=== PATIENT | male | born 1975 | race Caucasian/White ===

== ENCOUNTER 2024-10-04 12:53 | Emergency (ER) | payer BC, SELFPAY ==
--- NOTE | 2024-10-04 13:33 | RAD REPORT ---
Exam:Hand Right 3 View HISTORY: Right hand pain FINDINGS: Laceration soft tissue adjacent to the fifth metacarpal. No acute fracture or dislocation Old fractures third and fifth digits. Metallic fragments third digit.
[2024-10-04] MEDS ORDERED: TDAP (DIPHTH,PERTUSS(ACELL),TET VAC) 0.5 ML VIAL IMVAC ONE (13:59)
[2024-10-04] MEDS ORDERED: LIDOCAINE 1% MPF 5 ML VIAL ONE (13:59)
[2024-10-04] MEDS ORDERED: ONDANSETRON 4 MG (ODT) TAB ONE (14:12)
--- NOTE | 2024-10-04 14:20 | EDPHYS ---
Physician Documentation [facility] Name: Herman Vazquez Age: 49 yrs Sex: Male : 1975 Arrival Date: 10/04/2024 Time: 12:53 Bed 10 Private MD: ED Physician Luis Douglas HPI: 10/04 13:17 This 49 yrs old Male presents to ER via Ambulatory with complaints of Laceration To kb Hand. 13:17 Pt is a 49 year old male who presents for a laceration to right hand. States he was kb digging a hole and hit his hand on a piece of wood. Denies any other injury. Occurred around 10 this morning. . Historical: - Allergies: 13:12 No Known Allergies; hb - Immunization history:: Adult Immunizations up to date. - Infectious Disease History:: Denies. - Social history:: Smoking status: Patient denies any tobacco usage or history of. ROS: 13:16 Constitutional: As per HPI kb Exam: 13:16 Constitutional: This is a well developed, well nourished patient who is awake, alert, kb and in no acute distress. Head/Face: Normocephalic, atraumatic. ENT: Moist Mucous membranes Respiratory: Respirations even and unlabored. No increased work of breathing. Talking in full sentences MS/ Extremity: Pulses equal, no cyanosis. Neurovascular intact. Full, normal range of motion. Neuro: Awake and alert, GCS 15, oriented to person, place, time, and situation. 13:16 Skin: injury, laceration(s), the wound is approximately 3 cm(s), of the dorsum of right hand, that can be described as clean, no foreign body, irregular, without bleeding, Vital Signs: 13:10 BP 111 / 86; Pulse 86; Resp 16; Temp 98; Pulse Ox 100% ; Weight 77.11 kg; Height 5 ft. hb 7 in. ; Pain 2/10; 13:10 Body Mass Index 26.63 (77.11 kg, 170.18 cm) hb 13:10 Pain Scale: Adult hb Laceration: 14:18 Wound Repair of 3cm ( 1.2in ) subcutaneous laceration to dorsum of right hand. kb Irregularly shaped.. Distal neuro/vascular/tendon intact. Anesthesia: Wound infiltrated with 4 mls of 1% lidocaine. Wound prep: Extensive cleansing with hibiclenz by me, Wound irrigation with saline by me. Skin closed with 5 4-0 Prolene using simple sutures and sterile technique. Patient tolerated well. MDM: 12:58 Medical Screening Exam initiated kb 13:18 Differential diagnosis: superficial laceration, tendon injury, vascular injury, kb fracture. Data reviewed: vital signs, nurses notes. Historians other than the Patient: Spouse/Significant Other: spouse. 13:40 Independent interpretation of the following test(s) in the Emergency Department X-Ray: kb My interpretation is no acute fracture or FB at site of injury. 14:19 Counseling: I had a detailed discussion with the patient and/or guardian regarding the kb historical points, exam findings, and any diagnostic results supporting the discharge/admit diagnosis, radiology results, the need for outpatient follow up, a family practitioner, to return to the emergency department if symptoms worsen or persist or if there are any questions or concerns that arise at home. 10/04 13:02 Order name: Hand Right 3 View XRAY; Complete Time: 13:39 kb 10/04 13:02 Order name: Dressing - Wound; Complete Time: 14:15 kb 10/04 13:02 Order name: Gloves, Sterile: size 6.0; Complete Time: 14:15 kb 10/04 13:02 Order name: Prolene, Sutures: size 4.0; Complete Time: 14:15 kb 10/04 13:02 Order name: Setup Suture Tray; Complete Time: 14:15 kb Administered Medications: 14:04 Drug: Boostrix Tdap IM 0.5 ml IM once; as a single dose {Note: L5229 exp 09/11/26.} ll1 Route: IM; Site: left deltoid; 14:35 Follow up: Response: No adverse reaction ll1 14:06 Drug: Lidocaine Infiltration (1 %) 1 units 5 ml Infiltration once; to bedside {Note: R ll1 hand laceration repair by Rito Wilson NP.} Volume: 5 ml; Route: Infiltration; 14:35 Follow up: Response: No adverse reaction; Pain is decreased ll1 14:10 Drug: Ondansetron Oral Disintegrating Tablet Oral Disintegrating Tablet 4 mg PO once hb Route: PO; 14:35 Follow up: Response: No adverse reaction; Nausea is decreased ll1 Disposition Summary: 10/04/24 14:19 Discharge Ordered Notes: Location: Home kb Condition: Stable kb Diagnosis - Laceration without foreign body of right hand kb Followup: kb - With: Emergency Department - When: As needed - Reason: Worsening of condition Followup: kb - With: Private Physician - When: 2 - 3 days - Reason: Recheck today's complaints, Continuance of care, Re-evaluation by your physician Discharge Instructions: - Discharge Summary Sheet kb - Laceration Care, Adult, [id number] kb Forms: - Medication Reconciliation Form kb - Antibiotic Education kb - Prescription Opioid Use kb - Patient Portal Instructions kb - Leadership Thank You Letter kb Signatures: Dispatcher [employer] EDLorri Ash FNP-C ROOF FIXER-Eliceob Yadi Catherine, RN RN Tressa Ansari RN RN ll1 Corrections: (The following items were deleted from the chart) 13:03 13:03 Hand Right 3 View+RAD.[email or web address].[email or web address] ordered. EDOR EDOR
--- NOTE | 2024-10-04 14:20 | ER ---
Nurse's Notes [facility] Name: Herman Vazquez Age: 49 yrs Sex: Male : 1975 Arrival Date: 10/04/2024 Time: 12:53 Bed 10 Private MD: Diagnosis: Laceration without foreign body of right hand Presentation: 10/04 13:10 Chief complaint: Hit hand on wooden pole while building fence, laceration noted to hb right hand. Bleeding controlled. Coronavirus screen: At this time, the client does not indicate any symptoms associated with coronavirus-19. Ebola Screen: No symptoms or risks identified at this time. Complicating Factors: There are no complicating factors for this patient. Initial Sepsis Screen: Does the patient meet any 2 criteria? No. Patient's initial sepsis screen is negative. Does the patient have a suspected source of infection? No. Patient's initial sepsis screen is negative. Risk Assessment: Do you want to hurt yourself or someone else? Patient reports no desire to harm self or others. Onset of symptoms was October 04, 2024. 13:10 Method Of Arrival: Ambulatory 13:10 Acuity: ELAINE 4 hb Triage Assessment: 14:33 General: Appears in no apparent distress. Behavior is calm, cooperative, appropriate ll1 for age. Pain: Denies pain. Injury Description: Laceration sustained to dorsum of right hand. Historical: - Allergies: 13:12 No Known Allergies; hb - Immunization history:: Adult Immunizations up to date. - Infectious Disease History:: Denies. - Social history:: Smoking status: Patient denies any tobacco usage or history of. Screenin:33 [facility] ED Fall Risk Assessment (Adult) History of falling in the last 3 months, ll1 including since admission No falls in past 3 months (0 pts) Confusion or Disorientation No (0 pts) Intoxicated or Sedated No (0 pts) Impaired Gait No (0 pts) Mobility Assist Device Used No (0 pt) Altered Elimination No (0 pt) Score/Fall Risk Level 0 - 2 = Low Risk Maintained a safe environment, Hourly rounding (assess needs \T\ fall precautionary measures) done. Abuse screen: Denies threats or abuse. Nutritional screening: No deficits noted. Tuberculosis screening: No symptoms or risk factors identified. Assessment: 14:05 Reassessment: No changes from previously documented assessment. Patient and/or family ll1 updated on plan of care and expected duration. Pain level reassessed. Patient is alert, oriented x 3, equal unlabored respirations, skin warm/dry/pink. 14:32 Reassessment: No changes from previously documented assessment. Patient and/or family ll1 updated on plan of care and expected duration. Pain level reassessed. Patient is alert, oriented x 3, equal unlabored respirations, skin warm/dry/pink. 14:34 Injury Description: Laceration is clean. ll1 14:34 Pain: Denies pain. Musculoskeletal: No deficits noted. ll1 Vital Signs: 13:10 BP 111 / 86; Pulse 86; Resp 16; Temp 98; Pulse Ox 100% ; Weight 77.11 kg; Height 5 ft. hb 7 in. ; Pain 2/10; 13:10 Body Mass Index 26.63 (77.11 kg, 170.18 cm) hb 13:10 Pain Scale: Adult hb ED Course: 12:57 Patient arrived in ED. gl 12:58 Lorri Wilson FNP-C is PHCP. kb 12:58 Luis Douglas MD is Attending Physician. kb 13:12 Triage completed. hb 13:24 Hand Right 3 View XRAY In Process Unspecified. EDMS 14:33 Arm band placed on left wrist. ll1 14:33 No provider procedures requiring assistance completed. Patient did not have IV access ll1 during this emergency room visit. 14:34 Patient has correct armband on for positive identification. Provided Education on: ER ll1 procedures and process. Administered Medications: 14:04 Drug: Boostrix Tdap IM 0.5 ml IM once; as a single dose {Note: L5229 exp 09/11/26.} ll1 Route: IM; Site: left deltoid; 14:35 Follow up: Response: No adverse reaction ll1 14:06 Drug: Lidocaine Infiltration (1 %) 1 units 5 ml Infiltration once; to bedside {Note: R ll1 hand laceration repair by Rito Wilson NP.} Volume: 5 ml; Route: Infiltration; 14:35 Follow up: Response: No adverse reaction; Pain is decreased ll1 14:10 Drug: Ondansetron Oral Disintegrating Tablet Oral Disintegrating Tablet 4 mg PO once hb Route: PO; 14:35 Follow up: Response: No adverse reaction; Nausea is decreased ll1 Medication: 14:34 VIS not applicable for this client. ll1 Outcome: 14:19 Discharge ordered by MD. zapien 14:34 Discharged to home ambulatory, ll1 14:34 Condition: stable 14:34 Discharge instructions given to patient, Instructed on discharge instructions, follow up and referral plans. wound care, Demonstrated understanding of instructions, follow-up care, wound care, 14:35 Patient left the ED. ll1 Signatures: Dispatcher [employer] EDMS Lorri Wilson, SEARCH DIRECTOR-Lito SEARCH DIRECTOR-Yadi Goodrich, RN RN Tressa Ansari RN RN ll1 Abby Trivedi, Reg Reg gl Corrections: (The following items were deleted from the chart) 14:05 14:04 Boostrix Tdap IM 0.5 ml IM in left deltoid ll1 ll1
[2024-10-04 14:40] VITALS: BP 111/86; TEMP 98; O2SAT 100
== END 2024-10-04 14:35 | disposition home or self-care (01) ==
LOC: ER 12:53
DX: S61.411A Laceration without foreign body of right hand, initial encounter (principal); Z23 Encounter for immunization
CPT/HCPCS: 73130; 90715; 96372; 99284; 12042; Q0162; J2003